=== PATIENT | female | born 1980 | race Caucasian/White ===

== ENCOUNTER 2018-02-04 10:03 | Inpatient (IN) | payer OTHER ==
[2018-02-04] MEDS: LACTATED RINGER'S 1000 ML IV (11:00)
[2018-02-04 11:19] LABS: HEMATOCRIT 33.6 % (36.0-47.0); HEMOGLOBIN 11.6 g/dl (12.0-16.0); MEAN CORPUSCULAR HEMOGLOBIN 30.6 pg (27.0-33.0); MEAN CORPUSCULAR HGB CONC 34.5 g/dl (32.0-36.5); MEAN CORPUSCULAR VOLUME 88.7 fl (80.0-96.0); PLATELET COUNT, AUTOMATED 257 10^3/uL (150-450); RED BLOOD COUNT 3.79 10^6/uL (4.00-5.40); WHITE BLOOD COUNT 14.1 10^3/uL (4.0-10.0)
[2018-02-04] MEDS: PENICILLIN G POTASSIUM IV 5 MU in D5W MINI-BAG PLUS 100 ML IV (11:28)
[2018-02-04] MEDS ORDERED: FENTANYL 2MCG/ML ROPIVACAINE 0.2% IN 0.9% NACL 200ML IVBAG As Ordered (11:51)
[2018-02-04] MEDS ORDERED: ONDANSETRON 4MG/2ML VIAL (J2405) IV ×2 (13:00→20:00)
[2018-02-04] MEDS ORDERED: LACTATED RINGER'S 1000 ML IV (13:00)
[2018-02-04] MEDS ORDERED: EPIDURAL/PCA KEYS XX (13:00)
[2018-02-04] MEDS ORDERED: EPIDURAL COMMENT XX (13:00)
[2018-02-04] MEDS ORDERED: diphenhydrAMINE INJ 50MG/ML VIAL (J1200) IV (13:00)
[2018-02-04] MEDS: FENTANYL/ROPIVACAINE/NACL BAG 200 ML EPIDURAL (13:00)
[2018-02-04] MEDS ORDERED: REFRIGERATOR IV KEYS XX (13:00)
[2018-02-04] MEDS ORDERED: NALOXONE INJ 0.4 MG/1 ML VIAL (J2310) IV (13:00)
[2018-02-04] MEDS: ePHEDrine SULFATE 25 MG/5 ML(5MG/ML) SYRINGE IV (13:01)
[2018-02-04] MEDS: LR 1,000 ML IV ×4 (13:20→23:55)
[2018-02-04] MEDS: PENICILLIN G POTASSIUM IV 2.5 MU in APPROPRIATE DILUENT 1 EA IV ×3 (15:26→21:58)
[2018-02-04] MEDS ORDERED: OXYTOCIN DRIP 30 UNITS in APPROPRIATE DILUENT 1 EA IV (16:00)
[2018-02-04] MEDS ORDERED: MEASLES,MUMPS,RUBELLA VACCINE INJ (MMR-II) (90707) SC (20:00)
[2018-02-04] MEDS ORDERED: PROMETHAZINE 25 MG TAB PO (20:00)
[2018-02-04] MEDS ORDERED: MOM 30ML SUSPENSION UDC PO (20:00)
[2018-02-04] MEDS ORDERED: RHOGAM 300 MCG (1500 IU) INJ (J2790) IM (20:00)
[2018-02-04] MEDS ORDERED: METHYLERGONOVINE MALEATE 0.2 MG TAB PO (20:00)
[2018-02-04] MEDS: LIDOCAINE 1% MDV 20ML VIAL SC (21:30)
[2018-02-04] MEDS: ACETAMINOPHEN 500 MG TAB PO (23:46)
[2018-02-04] MEDS: DIBUCAINE 1% OINTMENT 30GM TOP (23:47)
[2018-02-04] MEDS: DOCUSATE SODIUM 100 MG CAP PO (23:47)
[2018-02-05] MEDS: LR 1,000 ML IV ×3 (02:05→10:05)
[2018-02-05] MEDS: PRENATAL VITAMINS CHEWABLE TABLET PO (08:22)
[2018-02-05] MEDS: IBUPROFEN 600 MG TAB PO ×2 (11:35→23:13)
[2018-02-05] MEDS: DIBUCAINE 1% OINTMENT 30GM TOP (19:52)
[2018-02-06] MEDS: PRENATAL VITAMINS CHEWABLE TABLET PO (08:05)
[2018-02-06] MEDS: ACETAMINOPHEN 500 MG TAB PO (08:24)
== END 2018-02-06 11:30 | disposition home or self-care (01) | DRG 775 ==
LOC: M LDI 10:03 → M OBS 22:45
PROVIDERS: Student in an Organized Health Care Education/Training Program
PROC: 10E0XZZ Delivery of Products of Conception, External Approach (ICD-10-PCS; principal; 2018-02-04)
PROC: 0KQM0ZZ Repair Perineum Muscle, Open Approach (ICD-10-PCS; 2018-02-04)
PROC: 0DQR0ZZ Repair Anal Sphincter, Open Approach (ICD-10-PCS; 2018-02-04)
DX: O99.824 Streptococcus B carrier state complicating childbirth (principal); O69.81X0 Labor and delivery complicated by cord around neck, without compression, not applicable or unspecified; Z3A.37 37 weeks gestation of pregnancy; O70.1 Second degree perineal laceration during delivery; O66.0 Obstructed labor due to shoulder dystocia; O70.22 Third degree perineal laceration during delivery, IIIb; Z37.0 Single live birth

== ENCOUNTER 2019-06-07 13:58 | Outpatient (CLI) | payer OTHER ==
[~2019-06-07] VITALS: Ht 160 cm; Wt 88.9 kg
[~2019-06-07 13:58] MED LIST: COLA100C5 PO; MOTR200T44 PO; NUPE1OIN2 TOP; PRENTAB9 PO; TYLE500T78 PO
[2019-06-07 14:29] VITALS: BP 126/73
[2019-06-07] MEDS ORDERED: MIRA3350 PO (14:38)
[2019-06-07] MEDS ORDERED: TUMS500C PO (14:38)
[2019-06-07] MEDS ORDERED: MILKSUS3 PO (14:38)
[2019-06-07] MEDS ORDERED: LR 1,000 ML IV ONE (14:45)
[2019-06-07 15:40] LABS: BASO % 0.4 % (0.0-1.0); HEMATOCRIT 34.7 % (36.0-47.0); HEMOGLOBIN 12.2 g/dl (12.0-15.5); LYMPH # 0.8 10^3/uL (1.5-4.5); LYMPH % 8.8 % (24.0-44.0); MEAN CORPUSCULAR HEMOGLOBIN 32.4 pg (27.0-33.0); MEAN CORPUSCULAR HGB CONC 35.2 g/dl (32.0-36.5); MONO # 0.4 10^3/uL (0.0-0.8); NEUTROPHILS # 7.9 10^3/uL (1.8-7.7); NEUTROPHILS % 83.6 % (36.0-66.0); PLATELET COUNT, AUTOMATED 218 10^3/uL (150-450); RED BLOOD COUNT 3.77 10^6/uL (4.00-5.40); WHITE BLOOD COUNT 9.5 10^3/uL (4.0-10.0)
[2019-06-07] MEDS ORDERED: ONDANSETRON 4MG/2ML VIAL (J2405) IV ONE (15:45)
[2019-06-07 16:13] LABS: ALBUMIN 2.8 GM/DL (3.2-5.2); ALT/SGPT 49 U/L (12-78); BILIRUBIN,TOTAL 0.5 MG/DL (0.2-1.0); BLOOD UREA NITROGEN 10 MG/DL (7-18); CALCIUM LEVEL 7.4 MG/DL (8.5-10.1); CARBON DIOXIDE LEVEL 20 MEQ/L (21-32); CHLORIDE LEVEL 106 MEQ/L (98-107); CREATININE FOR GFR 0.69 MG/DL (0.55-1.30); GLOMERULAR FILTRATION RATE > 60.0 (>60); GLUCOSE, FASTING 110 MG/DL (70-100); POTASSIUM SERUM 3.7 MEQ/L (3.5-5.1); SODIUM LEVEL 137 MEQ/L (136-145); TOTAL PROTEIN 6.3 GM/DL (6.4-8.2)
[2019-06-07 16:33] VITALS: BP 124/61
[2019-06-07 17:28] LABS: FREE T4 0.97 NG/DL (0.76-1.46)
--- NOTE | 2019-06-07 17:56 | IPNPDOC ---
Text Note Date of Service The patient was seen on 06/07/19. NOTE 38 yo at 33+5 weeks gestation was sent to L&D for evaluation secondary to persistent n/v of 24 hours duration in that she was unable to keep anything orally down. She reports this nausea and vomiting started yesterday after eating some food at the [facility]. She has vomited numerous times. She went to her OB scheduled clinic appointment today and was noted to be tachycardic and not feeling well. She denies having any fevers. She also denies any diarrhea, SOB, chest pain, palpitations, or dysuria. She has no obstetric complaints such as contractions, discharge, leakage of fluid, or bleeding. She endorses excellent movement. Vitals - HR initially in 130s, came down to 110s after IV hydration. Afebrile, normotensive. General - AAOX3, sitting up in bed, NAD, pleasant and conversant Abdomen - Gravid uterus, no fundal tenderness. Extremities - No edema FHR tracing - Cat I throughout monitoring with moderate variability, +accels, no decels. No ctx on toco. Labs: CBC - 9.5>12.2/34.7<218 BMP - 137/3.7--106/20--10/0.69<110 AST/ALT - 37/49 TSH - 0.2 Free T4 - 0.97 Triage: IV fluids IV zofran Evelyn's symptoms improved significantly after IV hydration and IV zofran. She was able to fully tolerate PO and had no vomiting in triage. status reassuring. Blood work mostly unremarkable and without evidence of acute bacterial infection. ALT borderline elevated, though this is not unexpected after persistent vomiting. In addition TSH is slightly low, but free T4 is normal. No fevers in triage. Suspect she has a viral GI syndrome. Script written for home PO zofran and I emphasized the importance of adequate PO water intake. She has a follow up appointment in 2 weeks in the office. She is to return to care sooner should she experience fevers/chills, persistent n/v, bleeding, leakage of fluid, or any other urgent concerns. All patient questions answered. Jt Bonilla, VS,Klaus, I+O VS, Klaus, I+O Laboratory Tests 06/07/19 15:27 Red Blood Count 3.77 L, Mean Corpuscular Volume 92.0, Mean Corpuscular Hemoglobin 32.4, Mean Corpuscular Hemoglobin Concent 35.2, Red Cell Distribution Width 14.1, Neutrophils (%) (Auto) 83.6 H, Lymphocytes (%) (Auto) 8.8 L, Monocy deon (%) (Auto) 4.0, Eosinophils (%) (Auto) 0.0, Basophils (%) (Auto) 0.4, Neutrophils # (Auto) 7.9 H, Lymphocytes # (Auto) 0.8 L, Monocytes # (Auto) 0.4, Eosinophils # (Auto) 0.0, Basophils # (Auto) 0.0, Calcium Level 7.4 L, Aspartate Amino Transf (AST/SGOT) 37, Alanine Aminotransferase (ALT/SGPT) 49, Alkaline Phosphatase 86, Total Bilirubin 0.5, Total Protein 6.3 L, Albumin 2.8 L Vital Signs Date Time Temp Pulse Resp B/P (MAP) Pulse Ox O2 Delivery O2 Flow Rate FiO2 06/07/19 16:33 99.9 120 18 124/61 (82) 99 JT BONILLA DO Jun 07, 2019 17:56
== END 2019-06-07 18:14 | disposition home or self-care (01) ==
LOC: M LDO 13:58
PROVIDERS: ATTEND Obstetrics & Gynecology
DX: O21.2 Late vomiting of pregnancy (principal); O99.89 Other specified diseases and conditions complicating pregnancy, childbirth and the puerperium; R00.0 Tachycardia, unspecified; Z3A.33 33 weeks gestation of pregnancy
CPT/HCPCS: 59025; 80053; 84439; 84443; 85025; 96361; 96374; G0378; G0463; J2405

== ENCOUNTER 2019-06-30 07:18 | Inpatient (IN) | payer OTHER ==
[2019-06-30] VITALS (17 sets, daily range): BP systolic 113–136; BP diastolic 58–90
[~2019-06-30] VITALS: Ht 160 cm; Wt 87.0 kg
[~2019-06-30 07:18] MED LIST changes: +MILKSUS3 PO; +MIRA3350 PO; +TUMS500C PO
[2019-06-30] MEDS ORDERED: LACTATED RINGER'S 1000 ML IV STA (08:36)
[2019-06-30] MEDS ORDERED: LR 1,000 ML IV SCH (08:36)
[2019-06-30] MEDS ORDERED: PENICILLIN G POTASSIUM IV 5 MU in D5W MINI-BAG PLUS 100 ML IV STA (08:36)
--- NOTE | 2019-06-30 08:49 | HPEPDOC ---
Obstetrical History & Physical General Date of Admission Jun 30, 2019 at 08:34 History of Present Illness 38 yo at 37+0 weeks gestation by 11+5 week US on [id number] presents to L &D with the complaint of a large gush of clear fluid at 0600 this AM followed by continuous leaking since. She endorses some vaginal spotting but denies any significant contraction pain. She endorses excellent movement. Chief Complaint: LOF, term Information Provided By: Patient Age: 38 : 3 Term: 1 Pre-term: 0 Abortions: 1 Livin Care Care: Good Care Dating Final EDC: Jul 21, 2019 Final EDC for Daily Update: Jul 21, 2019 Final EDC by: 1st trimester (US) (11+5 week US on 04Jan2019 set KASSANDRA of [id number]) Antepartum Course Diagnos(e)s GDMA1 --> well controlled through diet alone AMA --> low risk quad screen overweight GBS positive Past Medical History Past Obstetrical History : Past Obstetrical History: Multigravida ( at 38 weeks in 2018 with pelvis proven to 8lbs 12oz) Type of Delivery: Spontaneous Vaginal Del. BUSINESS PROCESS COORDINATOR History: No pertinent history Past Medical History Medical History Denies Surgical History: [place] teeth, Other (ankle surgery) Family History Significant Family History: No pertinent family hx Social History Marital Status: Family situation: Spouse/partner home Psychosocial History: No pertinent psych hx * Smoker: non-smoker Alcohol: Denies Drugs: denies Imunizations Tdap status: current Influenza Status: current Allergies Coded Allergies: No Known Allergies (Unverified , 06/30/19) Medications Scheduled No.137/Iron/Folic Acd ( Vitamin Tablet) 1 Tab Tab, 1 TAB PO DAILY Scheduled PRN Acetaminophen (Tylenol Extra Strength) 500 Mg Tab, 1,000 MG PO Q6HP PRN for MILD PAIN (PS 1-4) Calcium Carbonate (Tums) 200 Mg Tab.chew, 2 TAB PO QIDP PRN for HEARTBURN Magnesium Hydroxide (Milk of Magnesia) 400 Mg/5 Ml Oral.susp, 5 ML PO BIDP PRN for CONSTIPATION Polyethylene Glycol 3350 (Miralax) 119 Gm Powder, 17 GRAM PO DAILYPRN PRN for CONSTIPATION dissolve in water Physical Examination Physical Examination GENERAL: Alert and oriented times three. ABDOMEN: Gravid and non-tender to touch. FETUS: Is vertex (VTX) by sterile vaginal examination (SVE) and bedside TAUS EXTREMITIES: No edema. Pelvic exam: Grossly ruptured on exam with pooling of fluid in the vaginal vault, +ferning slide Laboratory Data Urine Culture: No Growth Pertinent Laboratoy Data Blood Type: A+ RBC Antibody Screen: Negative HIV: Negative Hepatitis B: Negative Hepatitis C: Unknown Rapid Plasma Reagin: Nonreactive Rubella: Immune Varicella: Immune Chlamydia/Gonorrhea: Negative Group B Streptococcus: Positive Quad Screen Test: Negative Cystic Fibrosis: Negative Glucose Tolerance Test: 106 (early 1hr 106, 3hr GTT at 26 weeks diagnosed GDM) Anatomy Ultrasound Placenta Location: Posterior Normal Anatomy: Yes Placenta Previa: No Steroid Therapy Steroid Therapy: No Vaginal Examination Dilation: 4 cm Effacement: 60% Station: -2 Cervical Consistency: Soft Cervical Position: Middle Presentation: Cephalic presentation Position: Vertex (occiput) Assessment Heart Rate (FHR): 140 Variability: Moderate Accelerations: Positive Decelerations: None Tocometer Contractions: Yes Frequency: irregular Assessment/Plan Assessment 38 yo at 37+0 weeks presented to L&D with grossly ruptured membranes. Plan Admit to L&D for expectant management of PROM. Should labor not begin within the next several hours will augment with pitocin. Apply IV fluids. GBS positive. PCN ordered. Regular diet. Patient may have epidural if desired. Anticipate . DO BERE Alanis CHRISTOPHER J. DO Jun 30, 2019 08:49
[2019-06-30 09:00] LABS: HEMATOCRIT 35.1 % (36.0-47.0); HEMOGLOBIN 11.9 g/dl (12.0-15.5); MEAN CORPUSCULAR HEMOGLOBIN 31.4 pg (27.0-33.0); MEAN CORPUSCULAR HGB CONC 33.9 g/dl (32.0-36.5); MEAN CORPUSCULAR VOLUME 92.6 fl (80.0-96.0); PLATELET COUNT, AUTOMATED 245 10^3/uL (150-450); RED BLOOD COUNT 3.79 10^6/uL (4.00-5.40); WHITE BLOOD COUNT 9.3 10^3/uL (4.0-10.0)
[2019-06-30] MEDS ORDERED: FENTANYL 2MCG/ML ROPIVACAINE 0.2% IN 0.9% NACL 100ML IVBAG As Ordered ONE (11:50)
[2019-06-30] MEDS ORDERED: PENICILLIN G POTASSIUM IV 2.5 MU in APPROPRIATE DILUENT 1 EA IV SCH (13:00)
[2019-06-30] MEDS ORDERED: ONDANSETRON 4MG/2ML VIAL (J2405) IV PRN (13:30)
[2019-06-30] MEDS ORDERED: FENTANYL/ROPIVACAINE/NACL BAG 100 ML EPIDURAL SCH (13:30)
[2019-06-30] MEDS ORDERED: EPIDURAL/PCA KEYS XX PRN (13:30)
[2019-06-30] MEDS ORDERED: REFRIGERATOR IV KEYS XX PRN (13:30)
[2019-06-30] MEDS ORDERED: LACTATED RINGER'S 1000 ML IV PRN (13:30)
[2019-06-30] MEDS ORDERED: ePHEDrine SULFATE 25 MG/5 ML(5MG/ML) SYRINGE IV PRN (13:30)
[2019-06-30] MEDS ORDERED: EPIDURAL COMMENT XX SCH (13:30)
[2019-06-30] MEDS ORDERED: NALOXONE INJ 0.4 MG/1 ML VIAL (J2310) IV PRN (13:30)
[2019-06-30] MEDS ORDERED: diphenhydrAMINE INJ 50MG/ML VIAL (J1200) IV PRN (13:30)
--- NOTE | 2019-06-30 14:30 | IPNPDOC ---
Text Note Date of Service The patient was seen on 06/30/19. NOTE Presented to room for assessment of progress. Patient comfortable with epidu ral, but still feeling pain and pressure with contractions. Cervix: 9/C/0. FHR Cat I. Contractions regular. Patient progressing well on her own power. continue expectant management. Has received 2 doses of PCN. DO Chad VS,Bartbonandres, I+O VS, Fishbone, I+O Laboratory Tests 06/30/19 08:46 Red Blood Count 3.79 L, Mean Corpuscular Volume 92.6, Mean Corpuscular Hemoglobin 31.4, Mean Corpuscular Hemoglobin Concent 33.9, Red Cell Distribution Width 14.5 Vital Signs Date Time Temp Pulse Resp B/P (MAP) Pulse Ox O2 Delivery O2 Flow Rate FiO2 06/30/19 13:23 79 119/63 (81) 06/30/19 11:35 98.0 16 FREDA BLACKBURN DO Jun 30, 2019 14:29
[2019-06-30] MEDS ORDERED: OXYTOCIN 30 UNITS IN 0.9% NaCl 500ML IV BAG (J2590) As Ordered ONE (14:39)
[2019-06-30] MEDS ORDERED: IBUPROFEN 800 MG TAB PO PRN (15:15)
[2019-06-30] MEDS ORDERED: RHOGAM 300 MCG (1500 IU) INJ (J2790) IM SCH (15:15)
[2019-06-30] MEDS ORDERED: DOCUSATE SODIUM 100 MG CAP PO PRN (15:15)
[2019-06-30] MEDS ORDERED: DIBUCAINE 1% OINTMENT 30GM TOP PRN (15:15)
[2019-06-30] MEDS ORDERED: ACETAMINOPHEN 500 MG TAB PO PRN (15:15)
[2019-06-30] MEDS ORDERED: MEASLES,MUMPS,RUBELLA VACCINE INJ (MMR-II) (90707) SC SCH (15:15)
[2019-06-30] MEDS ORDERED: ACETAMINOPHEN TAB 650MG DOSE (2X325MG) PO PRN (15:15)
[2019-06-30] MEDS ORDERED: PROMETHAZINE 25 MG TAB PO PRN (15:15)
--- NOTE | 2019-06-30 15:24 | DNPDOC ---
[facility] Delivery Note Delivery Note DATE OF DELIVERY: [id number] at ~1500 PREDELIVERY DIAGNOSIS: 37+0 weeks gestation and active labor POST DELIVERY DIAGNOSIS: Delivered. PROCEDURE: Spontaneous vaginal delivery BAND AID MACHINE OPERATOR: Dr. Bonilla ANESTHESIA: Epidural ESTIMATED BLOOD LOSS: 200 mL. FINDINGS: Viable male , 6lbs 6oz, Apgars 8/9 DELIVERY SUMMARY: Presented to room as patient felt urge to push. Fetus at +3 station. The bed was broken down and she was prepped for delivery. With excellent effort over less than 5 minutes of pushing her delivered. presentation was DONTAE with restitution to LOT. There was nuchal cord that was delivered through and reduced manually. The right anterior shoulder delivered with gentle traction followed easily by the remainder of the body. The infant was dried and stimulated on the field and a bulb suction was used. The was then placed on the maternal abdomen and cried vigorously. The three vessel cord was then clamped and cut by the FOB after appropriate time delay. Third stage was then completed with gentle traction on the cord and it w as productive of an intact placenta. The uterine fundus was firmed with massage and pitocin was administered IV bolus. Inspection of the vagina, perineum, and cervix revealed a small periurethral abrasion and a small perineal abrasion. These were repaired with 4-0 vicryl suture in the usual fashion. There was excellent cosmesis and hemostasis after the repair. The fundus was palpated again and was firm. Sponge, instrument, and needle counts were correct X2. Mother stable when I left the room. DO BERE Alanis CHRISTOPHER J. DO Jun 30, 2019 15:24
[2019-06-30] MEDS ORDERED: OXYTOCIN DRIP 30 UNITS in APPROPRIATE DILUENT 1 EA IV SCH (15:30)
--- NOTE | 2019-07-01 06:00 | IPNPDOC ---
Text Note Date of Service The patient was seen on 07/01/19. NOTE PPD1 status post uncomplicated spontaneous vaginal delivery, no significant de livery complications. She has been ambulating, voiding spontaneously without issue and tolerating regular diet. Pumping for now, baby in NICU for TTN, bonding appropriately. Reports lochia is light. Denies any pain or concerns other than cramping, which has improved some. VITAL SIGNS: Within normal limits, afebrile. Alert and oriented times three. Abdomen: Fundus firm at U-1 Soft, NTTP. A/P: 38 y/o G2 now P2, PPD 1, stable and doing well. Baby in NICU PLAN: 1. D/C likely tomorrow, if baby still in NICU then OK to board. 2. Tylenol and Motrin for pain. 3. Routine PP Care. Sessions VS,Klaus, I+O VS, Klaus, I+O Laboratory Tests 06/30/19 08:46 Red Blood Count 3.79 L, Mean Corpuscular Volume 92.6, Mean Corpuscular Hemoglobin 31.4, Mean Corpuscular Hemoglobin Concent 33.9, Red Cell Distribution Width 14.5 Vital Signs Date Time Temp Pulse Resp B/P (MAP) Pulse Ox O2 Delivery O2 Flow Rate FiO2 06/30/19 17:00 99.4 85 20 123/59 (80) I&O- Last 24 Hours up to 6 AM 07/01/19 05:59 Intake Total 2332.7 ml Output Total 1550 ml Balance 782.7 ml SESSIONS,TISHA Pacheco MD Jul 01, 2019 06:00
[2019-07-01 06:23] VITALS: BP 124/67
[2019-07-01] MEDS: PRENATAL VITAMINS CHEWABLE TABLET PO SCH (07:41)
[2019-07-01] MEDS: IBUPROFEN 600 MG TAB PO PRN ×2 (07:41→23:14)
[2019-07-01 18:03] VITALS: BP 112/67
[2019-07-02 06:09] VITALS: BP 113/69
[2019-07-02] MEDS: PRENATAL VITAMINS CHEWABLE TABLET PO SCH (08:02)
--- NOTE | 2019-07-02 08:02 | IPNPDOC ---
Progress Note Date of Service: Jul 02, 2019 Day#: 2 Progress Note PPD2 status post uncomplicated spontaneous vaginal delivery, no significant de livery complications. She has been ambulating, voiding spontaneously without issue and tolerating regular diet. Pumping for now, baby in NICU for TTN, bonding appropriately. Reports lochia is light. Denies any pain or concerns other than cramping. VITAL SIGNS: Within normal limits, afebrile. Alert and oriented times three. Abdomen: Fundus firm at U-2 Soft, NTTP. A/P: 38 y/o G2 now P2, PPD 2, stable and doing well. Baby in NICU PLAN: 1. D/C to boarding status while is in NICU 2. Tylenol and Motrin for pain. 3. Routine PP Care 4. F/u 6 weeks MD Awilda VS, I&O, 24H, Fishbone Vital Signs/I&O Vital Signs Date Time Temp Pulse Resp B/P (MAP) Pulse Ox O2 Delivery O2 Flow Rate FiO2 07/02/19 06:09 98.0 86 18 113/69 (84) 98 I&O- Last 24 Hours up to 6 AM 07/02/19 06:00 Intake Total 120 ml Balance 120 ml HCING URBAN MD Jul 02, 2019 08:02
[2019-07-02] MEDS ORDERED: IBUP80TA PO (08:06)
== END 2019-07-02 10:35 | disposition home or self-care (01) | DRG 807 ==
LOC: M LDO 07:18 → M LDI 08:34 → M OBS 16:51
PROVIDERS: ADMIT Obstetrics & Gynecology; ATTEND Obstetrics & Gynecology
PROC: 10E0XZZ Delivery of Products of Conception, External Approach (ICD-10-PCS; principal; 2019-06-30)
DX: O42.02 Full-term premature rupture of membranes, onset of labor within 24 hours of rupture (principal); Z37.0 Single live birth; Z3A.37 37 weeks gestation of pregnancy; O99.824 Streptococcus B carrier state complicating childbirth; O24.420 Gestational diabetes mellitus in childbirth, diet controlled; O69.81X0 Labor and delivery complicated by cord around neck, without compression, not applicable or unspecified

== ENCOUNTER 2019-10-18 11:49 | Day surgery (SDC) | payer OTHER ==
[~2019-10-18] VITALS: Ht 160 cm; Wt 71.6 kg
[~2019-10-18 11:49] MED LIST changes: +ACET500T15 PO; +FLUO10CA8 PO; +IBUP80TA PO; +LR 1,000 ML IV ONE
[2019-10-18 12:41] LABS: HEMOGLOBIN 14.2 g/dl (12.0-15.5); MEAN CORPUSCULAR HEMOGLOBIN 30.5 pg (27.0-33.0); MEAN CORPUSCULAR VOLUME 92.5 fl (80.0-96.0); PLATELET COUNT, AUTOMATED 294 10^3/uL (150-450); RED BLOOD COUNT 4.65 10^6/uL (4.00-5.40); WHITE BLOOD COUNT 6.5 10^3/uL (4.0-10.0)
[2019-10-18 12:58] LABS: HCG, SERUM QUALITATIVE NEGATIVE (NEGATIVE)
[2019-10-18] MEDS ORDERED: BUPIVACAINE HCL 0.5% 30 ML VIAL As Ordered ONE (14:48)
[2019-10-18] MEDS ORDERED: BUPIVACAINE HCL 0.5% 10 ML VIAL As Ordered ONE (14:52)
[2019-10-18] MEDS ORDERED: PROPOFOL 200 MG/20 ML VIAL As Ordered ONE ×2 (15:32→15:52)
[2019-10-18] MEDS ORDERED: KETOROLAC 60 MG/2 ML VIAL (J1885) As Ordered ONE (15:32)
[2019-10-18] MEDS ORDERED: dexameTHASONE 4 MG/ML 1ML VIAL (J1100) As Ordered ONE (15:32)
[2019-10-18] MEDS ORDERED: HYDROmorphone HCL 2 MG/ML 1ML VIAL (J1170) As Ordered ONE (15:32)
[2019-10-18] MEDS ORDERED: ONDANSETRON 4MG/2ML VIAL (J2405) As Ordered ONE ×2 (15:32→16:22)
[2019-10-18] MEDS ORDERED: ROCURONIUM BROMIDE 50 MG/5 ML VIAL As Ordered ONE (15:32)
[2019-10-18] MEDS ORDERED: LIDOCAINE 2% INJ 100 MG/5 ML SDV (FOR ANES.) As Ordered ONE (15:32)
[2019-10-18] MEDS ORDERED: MIDAZOLAM INJ 2 MG/2 ML VIAL (J2250) As Ordered ONE (15:32)
[2019-10-18] MEDS ORDERED: ACETAMINOPHEN 1000MG 100ML IV BTL (OFIRMEV) (J0131 PER 10MG) As Ordered ONE (15:32)
[2019-10-18] MEDS ORDERED: fentaNYL 100 MCG/2 ML INJECTION (J3010) As Ordered ONE (15:32)
[2019-10-18] MEDS ORDERED: SUGAMMADEX SODIUM 500 MG/5 ML VIAL (BRIDION) As Ordered ONE (15:33)
[2019-10-18] MEDS ORDERED: SILVER NITRATE APPLICATOR As Ordered ONE (15:51)
[2019-10-18] MEDS ORDERED: PERCOCET 5MG/325MG TAB PO PRN (16:30)
[2019-10-18] MEDS ORDERED: LR 1,000 ML IV SCH (16:30)
[2019-10-18] MEDS ORDERED: ONDANSETRON 4MG/2ML VIAL (J2405) IV PRN (16:30)
[2019-10-18] MEDS ORDERED: fentaNYL 100 MCG/2 ML INJECTION (J3010) IV PRN (16:30)
[2019-10-18] MEDS ORDERED: METOCLOPRAMIDE INJ 10MG/2ML VIAL (J2765) As Ordered ONE (16:39)
[2019-10-18] MEDS ORDERED: METOCLOPRAMIDE INJ 10MG/2ML VIAL (J2765) IV PRN (17:00)
[2019-10-18 18:10] VITALS: BP 131/80
--- NOTE | 2019-10-20 08:00 | RO ---
DATE OF PROCEDURE: 10/18/2019 PREOPERATIVE DIAGNOSIS: Satisfied parity. POSTOPERATIVE DIAGNOSIS: Satisfied parity. PROCEDURE: Laparoscopic bilateral salpingectomy. SURGEON: Dr. Jt Bonilla COFFEE TASTER: Dr. Zuleika Riley ANESTHESIA: General. FLUIDS: 900 mL lactated Ringer's (LR). URINE OUTPUT: 100 mL via Rincon catheter. ESTIMATED BLOOD LOSS (EBL): 5 mL. ANTIBIOTICS: None indicated. COMPLICATIONS: None. OPERATIVE FINDINGS: Normal liver, gallbladder, and gastric curve. Normal uterus. Normal ovaries bilaterally, and normal fallopian tubes bilaterally. DESCRIPTION OF PROCEDURE: The risks, benefits, indications, and alternatives of the procedure were reviewed with the patient, and informed consent was obtained. The patient was taken to the operating room where general anesthesia was obtained without difficulty. The patient was then placed in the lithotomy position using gel-padded Sergey stirrups. The patient's arms were then gently tucked to the side with padding. The patient was then prepped and draped in the usual sterile fashion. A surgical time-out was then performed and the patient's identity and planned procedure were verified with the operative team. A Rincon catheter was placed first to drain the bladder. A sterile speculum was then placed into the vagina, and the cervix was visualized. An acorn uterine manipulator was then placed as a means to manipulate the uterus. The sterile speculum was then removed from the patient's vagina. Gloves were then exchanged, and attention was then turned to the patient's abdomen, where a 5 mm skin incision was then made in the inferior aspect of the umbilicus after injection of Marcaine. A 5 mm trocar and sleeve were then carefully introduced into the peritoneal cavity under direct visualization at a 90 degree angle while tenting up the abdominal wall. Intraperitoneal placement was confirmed by direct visualization. Entry pressure was noted to be less than 5 mmHg. A pneumoperitoneum was obtained with several liters of CO2 gas. Upon entry into the peritoneal cavity, structures immediately below the incision were inspected and found to be free of injury. A survey of the patient's abdomen and pelvis was notable for a normal-appearing liver, gallbladder, gastric curve. The uterus, fallopian tubes, and ovaries were normal in appearance. The posterior cul-de-sac and anterior cul-de-sac were also normal in appearance. Two additional 5 mm trocars, one in the left lower quadrant and one in the right lower quadrant were then inserted into the abdomen under direct laparoscopic visualization after injection of Marcaine. Using the Ligasure electrocautery, the left fallopian tube was dissected from the mesosalpinx from the fimbriated end to the isthmic portion, taking care to cauterize vasculature within the mesosalpinx. The fallopian tube was then amputated at its connection to the uterine cornua and was removed from the patient's abdomen. Attention was then turned to the patient's right fallopian tube which in a similar fashion, was lifted by a blunt grasper and removed in the same way using the Ligasure electrocautery. The right fallopian tube was then removed from the abdomen, and both fallopian tubes were sent to pathology for review. All operative sites were inspected and found to be hemostatic. The gas was then turned off and all CO2 was removed from the patient's abdomen. The patient was then given three manual breaths to assist with de sufflation of the abdomen. All ports were then removed from the abdomen under direct visualization, and there was no bleeding seen from the trocar sites. The skin incisions were then closed with #4-0 Monocryl suture. Dermabond was then also applied to the incisions. The uterine manipulator was then removed from the cervix. Hemostasis at the cervix was achieved with sticks of silver nitrate. All instruments were then confirmed to have been removed from the vagina. At the completion of the case the sponge, instrument, and needle counts were correct times two. The patient tolerated the procedure well. She was cleansed and dried, taken out of lithotomy positioned, awakened from anesthesia, and taken to the post anesthesia care unit (PACU) in stable condition. FIOR
== END 2019-10-18 18:15 | disposition home or self-care (01) ==
LOC: M SDC 11:49
PROVIDERS: ATTEND Obstetrics & Gynecology
DX: Z30.2 Encounter for sterilization (principal); J00 Acute nasopharyngitis [common cold]; Z86.32 Personal history of gestational diabetes